=== PATIENT | female | born 2000 | race Caucasian/White ===

== ENCOUNTER 2018-07-01 17:49 | Emergency (ER) | payer MEDICAID, OTHER ==
[~2018-07-01] VITALS: Ht 154.9 cm; Wt 75.0 kg
[2018-07-01 17:58] VITALS: BP 91/45
--- NOTE | 2018-07-01 18:07 | NUR ---
PT AMB TO BED 3
--- NOTE | 2018-07-01 18:08 | NUR ---
17/F C/O RT FOOT PAIN, S/P FALL AT WORK AT [employer]. PT STATED [employer] NOTIFIED. PT RT FOOT SWOLLEN AND PT UNABLE TO BEAR FULL WT. PAIN 10/03. PATIENT POSITIONED FOR COMFORT; R FOOT ELEVATED; BEDRAILS UP X1; BED DOWN. ER MD MADE AWARE OF PT STATUS.
--- NOTE | 2018-07-01 18:12 | NUR ---
X RAY AT BEDSIDE
[2018-07-01] MEDS ORDERED: IBUPROFEN 600 MG TAB PO ONE (19:05)
--- NOTE | 2018-07-01 19:27 | NUR ---
Pt report given to BESSIE HUANG. Transfer of care at this time.
--- NOTE | 2018-07-01 19:31 | NUR ---
ODETTE WRAP PLACED ON PT R ANKLE. +CSM
--- NOTE | 2018-07-01 19:32 | NUR ---
PT GIVEN PROPER INSTRUCTION ON SAFE USE OF CRUTCHES. CRUTCHES FITTED TO PT HEIGHT WITH 2 INCH GAP BETWEEN ARMPIT AND START OF CRUTCHES, AND HANDLES AT PT WRISTS. PT GIVEN INSTRUCTION ON USE OF CRUTCHES, INCLUDING STANDING TO SITTING AND VICE VERSA, ASCENDING/DESCENDING STAIRS, AND WALKING. PT DEMONSTRATED SAFE USE OF CRUTCHES FOR APPROXIMATELY 40 FEET, STATED SHE FELT CONFIDENT WITH USE.
--- NOTE | 2018-07-01 19:54 | NUR ---
Patient discharged with v/s stable. Written and verbal after care instructions given and explained. Patient alert, oriented and verbalized understanding of instructions. Ambulatory with steady gait. All questions addressed prior to discharge. ID band removed. Patient advised to follow up with PMD. Rx of IBUPROFEN 600MG given. Patient educated on indication of medication including possible reaction and side effects. Opportunity to ask questions provided and answered.
[2018-07-01 19:55] VITALS: BP 113/65
== END 2018-07-01 19:54 | disposition home or self-care (01) ==
LOC: MED 17:49
DX: M25.474 Effusion, right foot (principal); W01.0XXA Fall on same level from slipping, tripping and stumbling without subsequent striking against object, initial encounter; Y93.89 Activity, other specified; Y92.89 Other specified places as the place of occurrence of the external cause; Y99.8 Other external cause status
CPT/HCPCS: 73630; 81025; 99283